=== PATIENT | male | born 1995 | race Caucasian/White ===

== ENCOUNTER 2016-08-13 10:02 | Emergency (ER) | payer BC ==
[2016-08-13 11:21] VITALS: BP 138/82
--- NOTE | 2016-08-13 12:44 | UC ---
Ear Complaint HPI - HPI Summary HPI Summary: "Pt complains of severe pain in right ear for last 6 days ago and saw PCP . Pt states he was diagnosed with right ear infection. pt states pain has gotten worse and now has pain in left ear. Pt complains of cold chills. Pt states he has ringing and difficulty hearing out of left ear. 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 Here with his fiance Christina. pain is significant. right ear swelling as well. - History of Current Complaint Chief Complaint: UCEar Stated Complaint: EAR PAIN Time Seen by Provider: 08/13/16 12:36 - Allergies/Home Medications Allergies/Adverse Reactions: Allergies Allergy/AdvReac Type Severity Reaction Status Date / Time Penicillins Allergy Intermediate Hives Verified 08/13/16 11:21 seasonal Allergy Congestion Uncoded 08/13/16 11:21 Home Medications: Home Medications Acetaminophen [Acetaminophen Extra Stren] 1 tab PO Q8HR PRN 08/13/16 [History Confirmed 08/13/16] Clarithromycin [Biaxin Xl Pac] 1 tab PO BID 08/13/16 [History Confirmed 08/13/16 ] Naproxen 1 tab PO Q6HR 08/13/16 [History Confirmed 08/13/16] PMH/Surg Hx/FS Hx/Imm Hx Previously Healthy: Yes - Surgical History Surgical History: None - Family History Known Family History: Negative: Diabetes - Social History Alcohol Use: None Substance Use Type: None Smoking Status (MU): Heavy Every Day Tobacco Smoker Type: Cigarettes Amount Used/How Often: 1/2ppd - Immunization History Vaccination Up to Date: Yes Review of Systems Constitutional: Fever - tactile, Chills Skin: Negative Eyes: Negative ENT: Ear Ache Respiratory: Negative Cardiovascular: Negative Gastrointestinal: Negative Genitourinary: Negative Motor: Negative Neurovascular: Negative Musculoskeletal: Negative Neurological: Negative Psychological: Negative All Other Systems Reviewed And Are Negative: Yes Physical Exam Triage Information Reviewed: Yes Appearance: Well-Nourished - very pleasant, Pain Distress Vital Signs: Initial Vital Signs Temp 98.8 F 08/13/16 11:14 Pulse 100 08/13/16 11:14 Resp 16 08/13/16 11:14 BP 138/82 08/13/16 11:14 Pulse Ox 99 08/13/16 11:14 Vital Signs Reviewed: Yes Eye Exam: Normal ENT: Positive: Hearing grossly normal, Pharynx normal, Other: - rt external ear with swelling and elevated. very tender to touch. Rt canal with significant swelling, unable to visualize TM. no blood. Left external ear with mild tenderness with manipulation of helix and tragus. mild swelling of canal. TM nml Dental Exam: Normal Neck exam: Normal Respiratory Exam: Normal Respiratory: Positive: Lungs clear, Normal breath sounds, No respiratory distress, No accessory muscle use Cardiovascular Exam: Normal Cardiovascular: Positive: RRR, No Murmur, Pulses Normal Abdomen Description: Positive: Nontender, Soft Musculoskeletal Exam: Normal Neurological Exam: Normal Psychological Exam: Normal Skin Exam: Normal Ear Complaint Course/Dx - Course Course Of Treatment: Ear wick placed in right ear without incident followed by 4 gtts of his abx gtts. apply b/l and lay down for at least 10 mins. I suspect that ear gtts did not access the canal adeqauetly b/c swelling. His family see' s Dr Avendano ENT and he would like to f/u with him specifically. - Differential Dx/Diagnosis Differential Diagnosis/HQI/PQRI: Cellulitis, Cerumen Impaction, Otitis Externa, Otitis Media, URI Provider Diagnoses: B/L otitis externa Discharge - Discharge Plan Condition: Stable Disposition: HOME Prescriptions: Ciproflox/Dexameth OTIC.SUSP* [Ciprodex OTIC.SUSP*] 4 drop OTIC BID #10 ml Patient Education Materials: Otitis Externa (ED) Referrals: JANA Gomez [Primary Care Provider] - Additional Instructions: Please call the ENT tomorrow to be seen. Continue the current drops and antibiotics. A new prescription for drops is being sent in to use on the left ear as well. Continue ibuprofen 800mgs every 8 hrs as needed.
== END 2016-08-13 13:04 | disposition home or self-care (01) ==
LOC: UCCORT 10:02
DX: H60.93 Unspecified otitis externa, bilateral (principal); F17.210 Nicotine dependence, cigarettes, uncomplicated; Z88.0 Allergy status to penicillin
CPT/HCPCS: 99212; G0463

== ENCOUNTER 2017-08-15 09:54 | Day surgery (SDC) | payer BC ==
[~2017-08-15 09:54] MED LIST: Buffered Lidocaine 0.9% SYRIN* 5 ML/SYR SYRINGE INTRADERM ONE; Famotidine IV* 10 MG/ML 2 ML (20 mg) IV ONE; Metoclopramide TAB* 10 MG PO ONE
[2017-08-15] MEDS ORDERED: Clindamycin 900 MG IVPREMIX(* 900 MG/50 ML SDV IV ONE (10:06)
[2017-08-15] MEDS ORDERED: Buffered Lidocaine 0.9% SYRIN* 5 ML/SYR SYRINGE ONE (10:06)
[2017-08-15] MEDS ORDERED: Metoclopramide TAB* 10 MG ONE (10:06)
[2017-08-15] MEDS ORDERED: Famotidine IV* 10 MG/ML 2 ML (20 mg) ONE (10:06)
[2017-08-15] MEDS ORDERED: Ketorolac INJ* 30 MG/ML 1 ML VIAL ONE (11:24)
[2017-08-15] MEDS ORDERED: Lidocaine 2% PF * 5 ML VIAL ONE (11:24)
[2017-08-15] MEDS ORDERED: Propofol* 10 MG/ML 20 ML BTL IV PUSH ONE (11:24)
[2017-08-15] MEDS ORDERED: Midazolam* 1 MG/ML 5 ML VIAL (5 MG) ONE (11:24)
[2017-08-15] MEDS ORDERED: fentaNYL* 50 MCG/ML 2 ML VIAL (100 MCG VIAL) ONE ×2 (11:24→14:57)
[2017-08-15] MEDS ORDERED: Dexamethasone IV* 4 MG/ML 1 ML (4 MG) ONE (11:24)
[2017-08-15] MEDS ORDERED: Ondansetron INJ* 2 MG/ML VIAL ONE (11:24)
[2017-08-15] MEDS ORDERED: Bupivacaine 0.5% PF 10 ML VIAL INJ ONE ×2 (11:48→12:43)
[2017-08-15] MEDS ORDERED: HYDROmorphone INJ* 0.5 MG/0.5 ML SYRINGE ONE (13:11)
[2017-08-15] MEDS ORDERED: oxyCODONE/Acetamin 5/325 MG* TAB ONE (14:46)
[2017-08-15] MEDS: fentaNYL* 50 MCG/ML 2 ML VIAL (100 MCG VIAL) IV PRN ×2 (14:58→15:12)
[2017-08-15] MEDS ORDERED: Naloxone* 0.4 MG/ML 1 ML VIAL IV PRN (15:08)
[2017-08-15] MEDS ORDERED: Ondansetron INJ* 2 MG/ML VIAL IV PRN (15:08)
[2017-08-15] MEDS ORDERED: oxyCODONE/Acetamin 5/325 MG* TAB PO PRN (15:08)
[2017-08-15 15:52] VITALS: BP 128/95
--- NOTE | 2017-08-22 12:35 | OP ---
DATE OF OPERATION: 08/15/17 - [facility] DATE OF : [birth year] SURGEON: Jairon Herman MD OPTOMETRIST PRESIDENT/PRACTICE OWNER: TJ Allred. An assistant business manager was needed for the entirety of the procedure to aid in positioning of the arm and retraction. ANESTHESIA: General. PRE-OP DIAGNOSIS: Right displaced volar Agosto's distal radius intraarticular fracture. POST-OP DIAGNOSIS: Right displaced volar Agosto's distal radius intraarticular fracture. OPERATIVE PROCEDURE: Open reduction internal fixation of right intraarticular volar Agosto's fracture. INDICATIONS: Javier had the volar Agosto's fracture. Imaging was done at an outside facility. The x-rays and CT scan were reviewed. There was some displacement of the volar fragment with the carpus following the volar fragment in typical fashion. The piece really came down to a small piece on the ulnar side but on the more radial side, it was a relatively large volar piece. I told him that given his age, I would recommend reducing the fragment and stabilizing it as any amount of displacement with volar Agosto's fracture will lead to significant posttraumatic arthrosis. He understands the risks and benefits including the risks of stiffness, infection, malunion, nonunion, persistent pain, hardware irritation requiring removal of hardware, late flexor tendon rupture is another risk, and he wants to proceed. ESTIMATED BLOOD LOSS: 5 mL. COMPLICATIONS: None. FINDINGS: See above and below. DESCRIPTION OF PROCEDURE: Javier was seen in the preoperative holding area. The correct side, site, and procedure were identified. We came back to the operating room where anesthesia was induced. The arm was prepped and draped in the usual fashion. A time-out was performed. I exsanguinated the arm with the Esmarch and the tourniquet was inflated to 250 mmHg. I then made a longitudinal incision over the FCR tendon. Dissection was carried down to the tendon sheath, this was incised and opened up longitudinally. The tendon was retracted ulnarly. The subsheath was incised. The soft tissue interval between the FPL and the radial artery was utilized. The pronator quadratus was released along the radial aspect, then teed back distally transversely preserving the distal capsular ligaments. Fracture site was encountered, was displaced. I went ahead and removed all of the fracture hematoma and any interposed bony fragments. I then was able to reduce the fracture anatomically. This was secured with a couple of K-wires from along the distal volar lip out the dorsal cortex. Once I had it provisionally secured , I brought in my [employer] Variable Angle distal radius plate. This was pinned into location and one 2.4-mm cortical screw was placed in the oblong hole proximally. Mini C-arm fluoroscopy was used to confirm the reduction of the articular surface as well as the plate placement. I then placed 2 more cortical screws proximally as well as 2.4-mm locking screws in the distal row with the radial styloid screw being the variable angle locking screw. At this point, the provisional K-wires were removed. Final fluoroscopic images showed excellent plate placement and hardware placement. The wound was irrigated out, pronator was reapproximated with 3-0 Vicryl sutures. Skin was closed with 4-0 Monocryl suture and Steri-Strips. Wounds were dressed and a cock-up wrist splint was applied. The tourniquet was deflated and the hand pinked up immediately. He was then woken up and taken to recovery room in stable condition. [id number]/[facility] #: [id number] RICH
== END 2017-08-15 15:52 | disposition home or self-care (01) ==
LOC: OR 09:54
PROVIDERS: ATTEND Orthopaedic Surgery Hand Surgery
DX: S52.571A Other intraarticular fracture of lower end of right radius, initial encounter for closed fracture (principal); V86.59XA Driver of other special all-terrain or other off-road motor vehicle injured in nontraffic accident, initial encounter; Y92.89 Other specified places as the place of occurrence of the external cause; F41.8 Other specified anxiety disorders; Z72.0 Tobacco use; R01.1 Cardiac murmur, unspecified
CPT/HCPCS: A9270-GY; C1713; J1100; J1170; J1885; J2250; J2405; J2704; J3010